=== PATIENT | male | born 1950 | race Caucasian/White ===

== ENCOUNTER 2023-04-29 10:16 | Outpatient (CLI) | payer OTHER | END 2023-04-29 10:24 | disposition home or self-care (01) | LOC: MRI 10:16 | PROVIDERS: ATTEND Psychiatry & Neurology Clinical Neurophysiology | DX: G11.2 Late-onset cerebellar ataxia (principal); E51.2 Wernicke's encephalopathy | CPT/HCPCS: 70551 ==

== ENCOUNTER 2023-10-07 09:25 | Outpatient (CLI) | payer OTHER | END 2023-10-07 09:27 | disposition home or self-care (01) | LOC: NUCLEAR 09:25 | PROVIDERS: ATTEND Psychiatry & Neurology Clinical Neurophysiology | DX: G31.83 Neurocognitive disorder with Lewy bodies (principal) | CPT/HCPCS: 78803; A9557 ==